=== PATIENT | female | born 1960 | race Caucasian/White ===

== ENCOUNTER 2016-08-11 08:32 | Day surgery (SDC) | payer BC ==
[~2016-08-11] VITALS: Ht 165.1 cm; Wt 71.3 kg
[~2016-08-11 08:32] MED LIST: ASPI81TA2 PO; ATEN25TA PO; CEFAZOLIN 1 GRAM INJECTION IV ONE; LIDOCAINE 1% (10mg/ml) 2ml SDV INJ ONE; LR 1,000 ML IV PRN
[2016-08-11 08:45] VITALS: BP 111/59; PULSE 65; RESP 13; TEMP 97.6; O2SAT 97; Ht 165.1 cm; Wt 71.3 kg
[2016-08-11] MEDS ORDERED: FENTANYL 100mcg/2ml INJECTION ONE (09:58)
[2016-08-11] MEDS ORDERED: MIDAZOLAM 2mg/2ml INJECTION ONE (09:59)
--- NOTE | 2016-08-11 10:11 | ANESPREOP ---
Anesthesia Record Date and Time DATE: 08/11/16 TIME: 10:10 Proposed Surgical Procedure BILATERAL UPPER BLEPHAROPLASTY NPO since: mn Allergies: Coded Allergies: No Known Allergies (Unverified , 08/10/16) Ht/Wt/BMI Height: 5 ' 5.00 " Weight: 71.300 kg BMI: 26.2 kg/m2 Vital Signs Date Time Temp Pulse Resp B/P Pulse Ox O2 Delivery O2 Flow Rate FiO2 08/11/16 08:45 97.6 65 13 111/59 97 Room Air Medications Inpatient Medications Current Medications Medications (Trade) Dose Ordered Sig/Suleman Start Time Stop Time Status Last Admin Dose Admin Lactated Ringer's (Lactated Ringers) 1,000 ml @ 50 mls/hr Q20H PRN 08/11/16 07:00 08/11/16 09:27 50 MLS/HR Aspirin (Aspirin) 81 Mg Tab.chew, 1 TAB PO DAILY, (Reported) Last Taken: on 08/03/16 Atenolol (Atenolol) 25 Mg Tablet, 1 TAB PO DAILY, ( Reported) Last Taken: on 08/11/16 0700 Currently on Beta Tala: Yes Beta Tala Last Taken: 0630 Medical/Surgical History Anesthesia PMH: Reports: *Hypertension (TAKES MEDS), Denies: Anesthesia Reactions (NO AIRWAY ISSUES ), Cancer, Clotting Problems, Glaucoma, Malignant Hyperthermia, Sleep Apnea Smoking Status: Never smoker Use Chewing Tobacco?: No Second Hand Exposure: No Substance Use Type: does not use Alcohol Intake: none HX of Last Menstrual Period: 2015 Past Surgical History Orthopedic Surgeries: Abdominal Surgeries: Yes - HERNIA REPAIR Genitourinary Surgeries: Cardiac Surgeries: Yes - HEART CATH Endocrine Surgeries: Reproductive Surgeries: Yes - LEEP FOR LENIN 2013 Neurological Surgeries: Ear Surgeries: Nose Surgeries: Throat Surgeries: Yes - TONSILLECTOMY Other Surgeries: Yes - COLONOSCOPY Anesthesia Adverse Reactions: FOUND none Family Hx of Anesthesia Advers: none Hx of Motion Sickness: No Pertinent Findings Test 08/11/16 08:53 Urine Test Negative (NEGATIVE) Physical Exam Respiratory: Lungs clear Cardiovascular: FOUND Regular rate, rhythm Airway Assessment Mallampati Score: II TMD: 3 Fingerbreadths Neck Extension: Fair Teeth: Poor Dentation (multiple missing) Overall Assessment: No Airway Concerns ASA: 2 Plan Anesthesia Plan: TIVA, LMA, GETA, MAC Discussion Discussed risks/options/alternatives of anesthesia and questions answered. Patient consents. Nursing pain assessment noted. Present: Family Member Attestation Statement Prior to the delivery of any anesthetic medication, I examined the patient, developed the plan, obtained the patient's consent and discussed the risk and benefits of the procedure with the patient/guardian. IRIS KENT CRNA Aug 11, 2016 10:11
[2016-08-11] MEDS ORDERED: PROPOFOL 200mg 20 ML IV ONE (10:23)
[2016-08-11] MEDS ORDERED: LIDOCAINE 1%/EPI 1:100,000 20ml MDV ONE (11:19)
[2016-08-11 12:23] VITALS: BP 106/59; PULSE 62; RESP 14; TEMP 97.9; O2SAT 95
--- NOTE | 2016-08-11 12:29 | PDPROCED ---
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
[2016-08-11] MEDS ORDERED: HYDROCODONE/APAP 5 mg/325 mg TABLET PO PRN (12:30)
[2016-08-11] MEDS ORDERED: ATROPINE 1mg/10ml Syringe IV PRN (12:30)
[2016-08-11] MEDS ORDERED: ONDANSETRON 4mg/2ml INJECTION IV PRN (12:30)
[2016-08-11] MEDS ORDERED: CEPH-583 PO (12:31)
[2016-08-11] MEDS ORDERED: ACET1TAB12 PO (12:31)
--- NOTE | 2016-08-11 12:37 | ANESPO ---
Post-Op Note Date 08/11/16 Time: 12:35 Status Pt Participated in Evaluation: Pt participated in person Vital Signs Date Time Temp Pulse Resp B/P Pulse Ox O2 Delivery O2 Flow Rate FiO2 08/11/16 12:23 97.9 62 14 106/59 95 Room Air Respiratory Function: Airway patent, Regular respirations Cardiovascular Function: Regular pulse Mental Status: Alert/oriented Pain Level Intensity: 0 Hydration: Taking po fluids Complications during Recovery None apparent Follow-Up Instructions Instructions Per Surgeon IRIS KENT CRNA Aug 11, 2016 12:37
[2016-08-11 12:40] VITALS: BP 98/56; PULSE 60; RESP 16; O2SAT 96
[2016-08-11 12:55] VITALS: BP 114/62; PULSE 63; RESP 16; O2SAT 96
--- NOTE | 2016-08-12 07:52 | OPNOTEF ---
DATE 08/11/2016 PREOPERATIVE DIAGNOSIS Bilateral upper lid dermatochalasis with visual field defect. 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 OPERATION Bilateral upper blepharoplasty. SURGEON Dr. Aster Cantu ANESTHESIA MAC INDICATIONS The patient is a 56-year-old woman who presented with the complaint of excess fat and skin of her upper eyelids. She was initially referred by Krystle Martinez APRN. 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 The excess skin and fat has been present for several years, but has gradually gotten worse. She does state that excess upper eyelid skin and visual disturbances run in her family. She has a history of dry eyes and her heavy lids cause discomfort and increase the sensation of something being in her eyes. Visual field exam was performed by Dr. Anthony on 04/01/2016 showing greater than 20% improvement OD and 30% improvement OS. On exam, she had excess skin more so than fat of her upper lids, left more so than right. The skin did touch the lids bilaterally, increasing from the midpoint to the periphery which then extended distinctly over the eyelashes. She had mild brow ptosis. In a detailed discussion with the patient preoperatively, the risks, benefits and alternatives of the procedure were reviewed including, although not limited to, bleeding or bruising, infection, poor or keloid scarring, residual skin and/or asymmetry, visual changes including blindness, exacerbation of dry eye syndrome. The patient understood and wished to proceed. PROCEDURE The patient was marked preoperatively and then brought to the operating room where, after suitable IV sedation, the patient was prepped and draped in the usual sterile manner. Of note, she received 1 g of Ancef preoperatively and wore sequential stockings throughout. First, the lids were infiltrated with 1% lidocaine with epinephrine. After a wait for hemostasis, the right upper lid incision was made sharply and the excess skin was then excised and handed off. Meticulous hemostasis throughout was obtained using the needle-tip cautery. The orbital septum was entered and the small run of excess fat in the medial and central compartments was teased, clamped, excised and handed off. Hemostasis was again obtained using the cautery and the wound was closed in one layer using a running subcuticular pull-out suture of 5-0 nylon. Interrupted 6-0 nylon was used as needed for improved closure. Attention was turned to the left upper lid where identical dissection, resection and closure was performed. The wound was irrigated with BSS and Bacitracin ophthalmic ointment was placed. She was then brought to the recovery room in stable condition. Estimated Blood Loss: Less than 5 mL. The case was clean. There were no specimens. [facility] SYSTEMJorge
== END 2016-08-11 13:10 | disposition home or self-care (01) ==
LOC: SCU 08:32
PROVIDERS: ATTEND Surgery Plastic and Reconstructive Surgery
DX: H02.834 Dermatochalasis of left upper eyelid (principal); H02.831 Dermatochalasis of right upper eyelid; I25.10 Atherosclerotic heart disease of native coronary artery without angina pectoris; K21.9 Gastro-esophageal reflux disease without esophagitis; E78.5 Hyperlipidemia, unspecified; I10 Essential (primary) hypertension; Z79.82 Long term (current) use of aspirin; Z79.899 Other long term (current) drug therapy
CPT/HCPCS: 15823; 81025; J2250; J2704; J3010; J7120